=== PATIENT | female | born 2000 | race African-American/Black ===

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

== ENCOUNTER 2019-04-18 13:14 | Emergency (ER) | payer OTHER, SELFPAY ==
[2019-04-18 13:18] VITALS: BP 115/81; PULSE 84; RESP 16; TEMP 36.4; O2SAT 100
--- NOTE | 2019-04-18 14:17 | ED.GENADUL_ITS ---
Discharge Plan Disposition Patient Disposition: HOME Discharge Details Chief Complaint: Nk/Back Pain Clinical Impression: Acute neck pain, Paresthesia, Left arm weakness Primary Care Provider: Robby Patel ED Provider: Geovanny Briceno Home Meds and New Rx's Prescriptions: No Action multivitamin [Daily Multi-Vitamin] 1 EACH tablet 1 ea PO DAILY RF: 0 polyethylene glycol 3350 [Miralax] 17 GM powder in packet 17 g PO DAILY Qty: 1 RF: 3 ketoconazole 120 ML shampoo 1 mor Topical PRN Qty: 120 RF: 0 sertraline 50 mg tablet 50 mg PO DAILY Qty: 30 RF: 2 sertraline 100 mg tablet 100 mg PO DAILY Qty: 30 RF: 2 trazodone 50 mg tablet 50 mg PO HS Qty: 30 RF: 1 Discharge Instructions Instructions: Paresthesia (ED), Neck Pain (ED) Additional Instructions: It is very importantly follow-up with your primary care provider. He will need ongoing evaluation for your symptoms. We have also sent out a test for Lyme disease which she will need to follow-up with her primary care provider to obtain results. Return to the emergency department if your symptoms worsen or any new concerns. Discharge Data Discharge Date/Time-TO BE ENTERED AT DEPARTURE: 04/18/19 17:10 Discharge Physician: Geovanny Briceno Medical Decision Making Suspect patient's neck and back pain with radiation to left arm is attributed to underlying scoliosis. Due to the report of left arm weakness, I will obtain some imaging and have prefaced this work-up the patient relating importance of need for follow-up for ongoing evaluation of the symptoms. Likely this will take place via follow-up with primary care and possibly referral to neurology if felt appropriate. In regards to report of right great toe decreased sensation as well as numbness in face, will obtain basic labs as well as Lyme and tick panel send out. Patient may require CSF testing if no cause identified and symptoms persist to evaluate for other etiology such as MS. I will relay notes to patient's primary care as again patient will require further investigation. Patient Name: BETY MORELAND #: [id number]: ER Ordering Provider: : REG ER Primary Care Provider: Robby Patel M.D.Date of Exam: 04/18/19Sex: F : 2000Age: 19 Exam(s) EXAM: CT Cervical Spine Without Contrast EXAM DATE/TIME: 04/18/2019 2:27 PM CLINICAL HISTORY: 19 years old, female; Signs and symptoms; Other: Neck pain with weakness to left arm TECHNIQUE: Imaging protocol: Axial computed tomography images of the cervical spine without contrast. Coronal and sagittal reformatted images were created and reviewed. Radiation optimization: All CT scans at this facility use at least one of these dose optimization techniques: automated exposure control; mA and/or kV adjustment per patient size (includes targeted exams where dose is matched to clinical indication); or iterative reconstruction. COMPARISON: No relevant prior studies available. FINDINGS: Mild straightening of the cervical spine. No focal subluxation. No acute fracture. No significant focal disc protrusion or herniation. Paraspinous soft tissues unremarkable. Lung apices unremarkable. IMPRESSION: No specific etiology identified for the patient's symptoms. HPI Patient presents with complaint of approximately 3 weeks of ongoing left sided neck and upper back discomfort, aching, with pain radiating to left shoulder, posterior upper arm, all the way to the hand. Additionally at times she feels she has some discomfort and tingling sensation in her lips, more so on the left side than the right. She reports that her left arm feels weaker than her right. In addition to this, she complains of tingling sensation in her plantar aspect of right great toe. Patient has relatively little past medical history but it is significant for marketed lordosis of her lumbar spine. She reports that over the past few years, she has had worsening discomfort in her lower back and particularly on her right hip, and states that over the past month or so she has been having to favor her left side when walking because her right hip bothers her. She denies any known tick bites but does have a pink round spot on her rig ht lower leg with central excoriation. She denies any fevers, chills, lethargy, joint swelling, additional arthralgia, headache, diplopia, chest pain, dyspnea, leg swelling. General Date/Time Provider Initiated Documentation: 04/18/19 13:44 . Related Data Home Medications Medication Instructions Recorded Confirmed multivitamin [Multi Vitamin Daily] 1 ea PO DAILY 04/20/14 04/18/19 polyethylene glycol 3350 [Miralax] 17 g PO DAILY #1 script 03/22/17 04/18/19 ketoconazole 1 mor TOPICAL PRN #120 ml 06/02/18 04/18/19 sertraline 100 mg tablet 100 mg PO DAILY #30 tab-cap 03/24/19 04/18/19 sertraline 50 mg tablet 50 mg PO DAILY #30 tab 03/24/19 04/18/19 trazodone 50 mg tablet 50 mg PO HS #30 tab 03/24/19 04/18/19 Previous Rx's Medication Instructions Recorded ketoconazole 1 mor TOPICAL PRN #120 ml 06/02/18 sertraline 100 mg tablet 100 mg PO DAILY #30 tab-cap 03/24/19 sertraline 50 mg tablet 50 mg PO DAILY #30 tab 03/24/19 trazodone 50 mg tablet 50 mg PO HS #30 tab 03/24/19 Allergies Allergy/AdvReac Type Severity Reaction Status Date / Time No Known Allergies Allergy Verified 04/18/19 13:22 General Stated Complaint: Nk/Back Pain JULIET: 4 Review of Systems Constitutional Denies chills, Denies fatigue, Denies fever(s) and Denies lethargy Eyes Denies loss of vision ENT Denies abnormal hearing, Denies nasal congestion and Denies sore throat Cardiovascular Denies chest pain and Denies dyspnea Respiratory Denies cough and Denies dyspnea Gastrointestinal Denies abdominal pain, Denies nausea and Denies vomiting Musculoskeletal Denies abnormal gait and Denies joint swelling Integumentary/Breasts Denies rash Neurologic Denies abnormal hearing, Denies abnormal movements, Denies abnormal speech, Denies abnormal gait, Denies burning sensations, Denies confusion and Denies loss of vision Psychiatric Denies confusion Endocrine Denies fatigue Hematologic/Lymphatic Denies easy bruising PFSH Medical History Abdominal pain Contraception Headache Surgical History egd (10/02/16) Family History Father Diabetes Social History Smoking/Tobacco Use Status: Never Alcohol Intake: never Drug use: Never Do you feel safe at home: Yes Do you feel safe in your relationship?: Yes Female Reproductive History Menstrual control method: implanted (Nexplanon inserted by Lupe Jaime NP LOT= [id number] EXP=03/2021) History History 0 Para Hx # Term Pregnancies Multiple births Hx # Pregnancies Ectopic pregnancies AB induced Hx Number of Living Children AB spontaneous Exam Const General: cooperative, healthy appearing and no acute distress HENMT Head: normal to inspection Ears: hearing grossly normal bilaterally Eyes EOM: EOM intact bilaterally Neck Neck: normal visual inspection Resp Effort & Inspection: normal respiratory effort Auscultation: clear to auscultation bilaterally Cardio Rate: regular rate Rhythm: regular rhythm Heart Sounds: no murmurs GI Palpation: soft and nontender Skin General skin exam: other (2 cm pink plaque right lower leg medial aspect, central 0.25 cm excoriation) Neuro General: alert, awake, oriented x3 and other (Decreased sensation to light touch letter aspect right great toe. ) Cranial Nerves: CN's II-XI intact bilaterally and facial strength normal Cognition: normal cognition Speech: speech normal Gait: normal gait Motor: other (Left arm strength 4 +/5, otherwise strength full throughout bilaterally) Extrem General: normal to inspection Course Vital Signs Temperature 36.4 C L 04/18/19 13:18 Pulse 84 04/18/19 13:18 Respiratory Rate 16 04/18/19 13:18 Blood Pressure 115/81 04/18/19 13:18 Pulse Oximetry 100 04/18/19 13:18 Temperature 36.4 C L 04/18/19 13:18 Temperature Source Temporal Artery Scan 04/18/19 13:18 Pulse 84 04/18/19 13:18 Respiratory Rate 16 04/18/19 13:18 Respiratory Effort 04/18/19 13:18 Blood Pressure 115/81 04/18/19 13:18 Blood Pressure Position Sitting 04/18/19 13:18 Pulse Oximetry 100 04/18/19 13:18 Oxygen Delivery Method Room Air 04/18/19 13:18 Oxygen Flow Rate 0 04/18/19 13:18 Pain Level 6 04/18/19 13:18
--- NOTE | 2019-04-18 14:22 | DI.CT_ITS ---
SYMPTOM/DIAGNOSIS: NECK PAIN WITH WEAKNESS TO LT ARM CERVICAL SPINE CT: Multiple contiguous axial images of the cervical spine were obtained. Sagittal and coronal reformatted images were obtained and evaluation. There is straightening of the normal cervical lordosis. This may be due to muscle spasm or patient positioning. The vertebral bodies, disc spaces and posterior elements are all well maintained. The bones are intact and normally mineralized. No significant central spinal canal stenosis is seen. The soft tissues are unremarkable. The lung apices are clear. IMPRESSION: No acute abnormality to explain the patient's symptoms are seen. If there are radicular concerns, an MRI may be considered for further evaluation.
[2019-04-18 14:58] LABS: Abs Immature Grans 0.01 k/cumm (0.0-0.09); Absolute Basophil Count 0.01 k/cumm (0.0-0.2); Absolute Lymphocyte Count 2.03 k/cumm (1.2-3.4); Absolute Monocyte Count 0.57 k/cumm (0.11-0.7); Absolute Neutrophil Count 4.81 k/cumm (1.2-6.7); Basophils % 0.1; Eosinophils % 2.6; HCT 41.3 % (36.0-46.0); HGB 14.2 g/dL (12.0-15.5); Immature Grans % 0.1; Lymphocytes % 26.6; Mean Corp. HGB Concentration 34.4 g/dL (32.0-36.0); Mean Corpuscular Hemoglobin 31.8 pg (27.0-33.0); Mean Corpuscular Volume 92.6 fL (80-95); Mean Platelet Volume 9.6 fL (8.0-11.0); Monocytes % 7.5; Neutrophils % 63.1; Platelet Count 255 x1000/uL (130-400); RBC 4.46 m/cumm (4.00-5.20); RBC Distribution Width 12.6 % (11.7-14.6); White Blood Cell Count 7.63 k/cumm (4.4-10.8)
--- NOTE | 2019-04-18 15:29 | DI.VRAD_ITS ---
EXAM: CT Cervical Spine Without Contrast EXAM DATE/TIME: 04/18/2019 2:27 PM CLINICAL HISTORY: 19 years old, female; Signs and symptoms; Other: Neck pain with weakness to left arm TECHNIQUE: Imaging protocol: Axial computed tomography images of the cervical spine without contrast. Coronal and sagittal reformatted images were created and reviewed. Radiation optimization: All CT scans at this facility use at least one of these dose optimization techniques: automated exposure control; mA and/or kV adjustment per patient size (includes targeted exams where dose is matched to clinical indication); or iterative reconstruction. COMPARISON: No relevant prior studies available. FINDINGS: Mild straightening of the cervical spine. No focal subluxation. No acute fracture. No significant focal disc protrusion or herniation. Paraspinous soft tissues unremarkable. Lung apices unremarkable. IMPRESSION: No specific etiology identified for the patient's symptoms. Dictated and Authenticated by: Emir Giang MD. Ordering:PERLA Small MD
[2019-04-18 15:30] LABS: ALT 41 U/L (12-78); AST 32 U/L (15-37); Albumin 3.8 g/dL (3.4-5.0); Alkaline Phosphatase 51 U/L (46-116); Anion Gap 8.5 mmol/L (3-11); BUN 14 mg/dL (7-18); Bilirubin, Total 0.7 mg/dL (0.2-1.0); CO2 27.5 mmol/L (21.0-32.0); CREATININE 0.74 mg/dL (0.55-1.02); Chloride 101 mmol/L (98-107); Glucose 93 mg/dL (70-100); Potassium 4.2 mmol/L (3.5-5.1); Sodium 137 mmol/L (136-145); TSH (W/Ref FT4) 1.62 uIU/mL (0.358-3.74); Total Protein 7.8 g/dL (6.4-8.2); Vitamin B12 495 pg/mL (193-986)
[2019-04-20 11:07] LABS: Lyme Ab w Rflx to Lyme Confirm Negative
[2019-04-21 00:03] LABS: Anaplasma phagocytophilum Negative (Negative); B. miyamotoi PCR Negative (Negative); Babesia divergens/MO-1 Negative (Negative); Babesia duncani Negative (Negative); Babesia microti Negative (Negative); Ehrlichia chaffeensis Negative (Negative); Ehrlichia ewingii/canis Negative (Negative); Ehrlichia muris eauclairensis Negative (Negative)
== END 2019-04-18 17:10 | disposition home or self-care (01) ==
PROVIDERS: Emergency Provider Physician Assistant Medical; PCP Pediatrics
DX: M54.2 Cervicalgia (principal); R20.2 Paresthesia of skin; R53.1 Weakness; M41.9 Scoliosis, unspecified
CPT/HCPCS: 36415; 80053; 81025; 99284; 72125; 82607; 84443; 85025; 86618; 87798

== ENCOUNTER 2020-05-23 10:55 | Outpatient (REF) | payer OTHER, SELFPAY ==
--- NOTE | 2020-05-23 10:15 | PAPFT_PTH ---
PATIENT: BETY MORELAND LOC: [facility] U#:[id number] AGE/SX: 20/F ROOM: RE05/23/[address]: Amanda Jaime NP : 2000 BED: DIS: 05/23/2020 SPEC #: [id number] RECD: 05/23/20 13:00 STATUS: LIONTabitha ALLAN #: [id number] CLAUS: 05/23/20 10:[address]: Amanda Jaime NP DEPT: [facility] Cytology RECD BY: Carol Price ENTERED: 05/23/20 13:00 SP TYPE: PAPFT OT DR: Robby Patel MD Tissues: 1 - CX/ENDOCX FOR PAP SMEARS Procedures: PAP THIN PREP/[facility] Screening Comments: [id number] (CHLAMYDIA/GC)
[2020-05-24 15:00] LABS: Chlamydia Result Negative (Negative); GC Result Negative (Negative)
== END 2020-05-23 11:15 ==
LOC: LBN 10:55
PROVIDERS: PCP Pediatrics; Visit Provider Nurse Practitioner Women's Health
DX: Z11.3 Encounter for screening for infections with a predominantly sexual mode of transmission (principal); Z12.4 Encounter for screening for malignant neoplasm of cervix
CPT/HCPCS: 87491; 87591; 88142